=== PATIENT | female | born 1990 | race Caucasian/White ===

== ENCOUNTER 2019-08-19 09:46 | Emergency (ER) | payer SELFPAY ==
--- NOTE | 2019-08-19 10:35 | EDM.PDOC ---
ED HPI GENERAL MEDICAL PROBLEM - General Chief Complaint: Respiratory Problem Stated Complaint: BAD COUGH Time Seen by Provider: 08/19/19 10:23 Source of Information: Reports: Patient, RN Notes Reviewed History Limitations: Reports: No Limitations - History of Present Illness INITIAL COMMENTS - FREE TEXT/NARRATIVE: 29-year-old female presents emergency department today with complaint of cough, she states she has coughed up blood yesterday she states she was coughing nani blood today it's more blood tinged sputum. 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: Neurological History: Reports: Migraines Psychiatric History: Reports: Anxiety, Dementia, Suicidal Ideation - Past Surgical History Female Surgical History: Reports: Tubal Ligation Social & Family History - Tobacco Use Smoking Status *Q: Former Smoker Used Tobacco, but Quit: Yes Month/Year Tobacco Last Used: 10 years - Caffeine Use Caffeine Use: Reports: Coffee - Recreational Drug Use Recreational Drug Use: No ED ROS GENERAL - Review of Systems Review Of Systems: See Below Constitutional: Reports: No Symptoms HEENT: Reports: No Symptoms Respiratory: Reports: Cough, Hemoptysis Cardiovascular: Reports: No Symptoms GI/Abdominal: Reports: No Symptoms : Reports: No Symptoms ED EXAM, GENERAL - Physical Exam Exam: See Below Exam Limited By: No Limitations General Appearance: Alert, WD/WN, No Apparent Distress Eye Exam: Bilateral Eye: Normal Inspection Ears: Normal External Exam, Normal Canal, Hearing Grossly Normal, Normal TMs Nose: Normal Inspection, Normal Mucosa, No Blood Throat/Mouth: Normal Inspection, Normal Lips, Normal Teeth, Normal Gums, Normal Oropharynx, Normal Voice, No Airway Compromise Head: Atraumatic, Normocephalic Neck: Normal Inspection, Supple, Non-Tender, Full Range of Motion Respiratory/Chest: No Respiratory Distress, Lungs Clear, Normal Breath Sounds, No Accessory Muscle Use, Chest Non-Tender Cardiovascular: Regular Rate, Rhythm, No Murmur Course - Vital Signs Last Recorded V/S: Last Vital Signs Temp 97.5 F 08/19/19 10:05 Pulse 63 08/19/19 10:05 Resp 16 08/19/19 10:05 BP 111/42 L 08/19/19 10:05 Pulse Ox 99 08/19/19 10:05 - Orders/Labs/Meds Orders: Active Orders 24 hr Category Date Time Status Peripheral IV Care [RC] . DIRECTED Care 08/19/19 11:50 Active CULTURE RESPIRATORY + SMEAR [RM] Urgent Lab 08/19/19 10:31 Ordered Iopamidol [Isovue-300 (61%)] Med 08/19/19 12:15 Active 100 ml IV . DIRECTED PRN Sodium Chloride 0.9% [Normal Saline] 1,000 ml Med 08/19/19 12:00 Active IV ASDIRECTED Sodium Chloride 0.9% [Normal Saline] 70 ml Med 08/19/19 12:15 Active IV ASDIRECTED Sodium Chloride 0.9% [Saline Flush] Med 08/19/19 11:50 Active 10 ml FLUSH ASDIRECTED PRN Peripheral IV Insertion Adult [OM.PC] Urgent Oth 08/19/19 11:50 Ordered Medication Orders Sodium Chloride (Normal Saline) 1,000 mls @ 500 mls/hr IV ASDIRECTED [facility] Last Admin: 08/19/19 12:46 Dose: 500 mls/hr Sodium Chloride (Normal Saline) 70 mls @ 3 mls/sec IV ASDIRECTED [facility] Last Admin: 08/19/19 12:21 Dose: 3 mls/sec Iopamidol (Isovue-300 (61%)) 100 ml IV . DIRECTED PRN PRN Reason: RADIOLOGY EXAM Stop: 08/20/19 12:16 Last Admin: 08/19/19 12:21 Dose: 100 ml Sodium Chloride (Saline Flush) 10 ml FLUSH ASDIRECTED PRN PRN Reason: Keep Vein Open Last Admin: 08/19/19 12:10 Dose: 10 ml Labs: Laboratory Tests 08/19/19 08/19/19 08/19/19 Range/Units 10:41 10:41 10:41 WBC 5.5 (4.5-11.0) K/uL RBC 4.56 (3.30-5.50) M/uL Hgb 12.4 (12.0-15.0) g/dL Hct 39.6 (36.0-48.0) % MCV 87 (80-98) fL MCH 27 (27-31) pg MCHC 31 L (32-36) % Plt Count 319 (150-400) K/uL Neut % (Auto) 55 (36-66) % Lymph % (Auto) 31 (24-44) % Bailey % (Auto) 12 H (2-6) % Eos % (Auto) 2 (2-4) % Baso % (Auto) 1 (0-1) % PT 10.9 (9.5-12.0) sec INR 1.01 (0.80-1.20) D-Dimer, Quantitative 107 (0.0-400.0) ng/mL Sodium (140-148) mmol/L Potassium (3.6-5.2) mmol/L Chloride (100-108) mmol/L Carbon Dioxide (21-32) mmol/L Anion Gap (5.0-14.0) mmol/L BUN (7-18) mg/dL Creatinine (0.6-1.0) mg/dL Est Cr Clr Drug Dosing mL/min Estimated GFR (MDRD) (>60) Glucose (74-106) mg/dL Calcium (8.5-10.1) mg/dL Total Bilirubin (0.2-1.0) mg/dL AST (15-37) U/L ALT (12-78) U/L Alkaline Phosphatase (46-116) U/L Total Protein (6.4-8.2) g/dL Albumin (3.4-5.0) g/dL Globulin (2.3-3.5) g/dL Albumin/Globulin Ratio (1.2-2.2) 08/19/19 Range/Units 10:41 WBC (4.5-11.0) K/uL RBC (3.30-5.50) M/uL Hgb (12.0-15.0) g/dL Hct (36.0-48.0) % MCV (80-98) fL MCH (27-31) pg MCHC (32-36) % Plt Count (150-400) K/uL Neut % (Auto) (36-66) % Lymph % (Auto) (24-44) % Bailey % (Auto) (2-6) % Eos % (Auto) (2-4) % Baso % (Auto) (0-1) % PT (9.5-12.0) sec INR (0.80-1.20) D-Dimer, Quantitative (0.0-400.0) ng/mL Sodium 141 (140-148) mmol/L Potassium 4.1 (3.6-5.2) mmol/L Chloride 105 (100-108) mmol/L Carbon Dioxide 25 (21-32) mmol/L Anion Gap 10.9 (5.0-14.0) mmol/L BUN 12 (7-18) mg/dL Creatinine 0.9 (0.6-1.0) mg/dL Est Cr Clr Drug Dosing 76.30 mL/min Estimated GFR (MDRD) > 60 (>60) Glucose 90 (74-106) mg/dL Calcium 9.0 (8.5-10.1) mg/dL Total Bilirubin 0.3 (0.2-1.0) mg/dL AST 13 L (15-37) U/L ALT 15 (12-78) U/L Alkaline Phosphatase 39 L (46-116) U/L Total Protein 7.5 (6.4-8.2) g/dL Albumin 3.7 (3.4-5.0) g/dL Globulin 3.8 H (2.3-3.5) g/dL Albumin/Globulin Ratio 1.0 L (1.2-2.2) Meds: Medications Generic Name Dose Route Start Last Admin Trade Name Freq PRN Reason Stop Dose Admin Sodium Chloride 1,000 mls @ 500 mls/hr 08/19/19 12:00 08/19/19 12:46 Normal Saline IV 500 mls/hr ASDIRECTED [facility]ARRO Administration Sodium Chloride 70 mls @ 3 mls/sec 08/19/19 12:15 08/19/19 12:21 Normal Saline IV 3 mls/sec ASDIRECTED [facility]O Administration Iopamidol 100 ml 08/19/19 12:15 08/19/19 12:21 Isovue-300 (61%) IV 08/20/19 12:16 100 ml . DIRECTED PRN Administration RADIOLOGY EXAM Sodium Chloride 10 ml 08/19/19 11:50 08/19/19 12:10 Saline Flush FLUSH 10 ml ASDIRECTED PRN Administration Keep Vein Open Departure - Departure Time of Disposition: 13:13 Disposition: Home, Self-Care 01 Condition: Fair Clinical Impression: Hemoptysis - Discharge Information Referrals: PCP,None [Primary Care Provider] - Forms: ED Department Discharge Additional Instructions: Please report to the outpatient surgical care unit Thursday for bronchoscopy with Dr. Lew - My Orders Last 24 Hours: My Active Orders 08/19/19 10:31 CULTURE RESPIRATORY + SMEAR [RM] Urgent 08/19/19 11:50 Peripheral IV Care [RC] . DIRECTED Sodium Chloride 0.9% [Saline Flush] 10 ml FLUSH ASDIRECTED PRN Peripheral IV Insertion Adult [OM.PC] Urgent 08/19/19 12:00 Sodium Chloride 0.9% [Normal Saline] 1,000 ml IV ASDIRECTED 08/19/19 12:15 Iopamidol [Isovue-300 (61%)] 100 ml IV . DIRECTED PRN Sodium Chloride 0.9% [Normal Saline] 70 ml IV ASDIRECTED - Assessment/Plan Last 24 Hours: My Active Orders 08/19/19 10:31 CULTURE RESPIRATORY + SMEAR [RM] Urgent 08/19/19 11:50 Peripheral IV Care [RC] . DIRECTED Sodium Chloride 0.9% [Saline Flush] 10 ml FLUSH ASDIRECTED PRN Peripheral IV Insertion Adult [OM.PC] Urgent 08/19/19 12:00 Sodium Chloride 0.9% [Normal Saline] 1,000 ml IV ASDIRECTED 08/19/19 12:15 Iopamidol [Isovue-300 (61%)] 100 ml IV . DIRECTED PRN Sodium Chloride 0.9% [Normal Saline] 70 ml IV ASDIRECTED Plan: Assessment Acuity = acute Site and laterality = hemoptysis Etiology = unknown etiology Manifestations = none Location of injury = Home Lab values = CBC, CMP, d-dimer all within normal limits, chest x-ray unremarkable CT scan with contrast shows no acute process Plan Called discussed case with Dr. Lew general surgery at 1300 he agreed to evaluate the patient with bronchoscopy this be planned for Thursday This note was dictated using [employer] voice recognition software please call with any questions on syntax or grammar.
--- NOTE | 2019-08-19 11:11 | CRLCR ---
INDICATION: Hemoptysis. TECHNIQUE: PA and lateral. COMPARISON: None. FINDINGS: Lungs and pleural spaces clear. Heart size and pulmonary vasculature within normal limits. No significant osseous abnormality. IMPRESSION: Negative chest. Dictated by Davey Hills MD @ Aug 19 2019 11:07AM Signed by Dr. Davey Hills @ Aug 19 2019 11:08AM
[2019-08-19] MEDS ORDERED: Sodium Chloride 0.9% 10 ML Syringe FLUSH PRN (11:50)
[2019-08-19] MEDS ORDERED: Sodium Chloride 0.9% 1,000 ML IV SCH (12:00)
[2019-08-19] MEDS ORDERED: Iopamidol 612 MG/ML 100 ML Bottle IV PRN (12:15)
--- NOTE | 2019-08-19 12:53 | CRLCT ---
HISTORY: Hemoptysis. TECHNIQUE: Intravenous contrast enhanced CT of the chest. 100 mL of Isovue-300 intravenous contrast administered. COMPARISON: Chest radiographs 08/19/2019. FINDINGS: There is no acute pulmonary embolism. No thoracic aortic aneurysm or dissection. No significant pericardial effusion. No enlarged mediastinal or hilar lymph nodes. No axillary adenopathy. - There is no lung infiltrate or pulmonary edema. No pleural effusion or pneumothorax. No endotracheal or proximal endobronchial mass. - No acute fractures. - 2.3 cm lesion within the lateral segment left hepatic lobe demonstrates some peripheral discontinuous nodular enhancement and therefore likely reflects a hemangioma. IMPRESSION: 1. No lung infiltrate or pulmonary edema. 2. No pulmonary embolism. 3. 2.3 cm left hepatic lobe lesion is likely a hemangioma. Dictated by Tony Johnson MD @ 08/19/2019 12:51:05 PM Please note that all CT scans at this facility use dose modulation, iterative reconstruction, and/or weight-based dosing when appropriate to reduce radiation dose to as low as reasonably achievable. Dictated by: Tony Johnson MD @ 08/19/2019 12:51:12 (Electronically Signed)
== END 2019-08-19 13:53 | disposition home or self-care (01) ==
LOC: JP.ED 09:46
DX: R04.2 Hemoptysis (principal); F41.9 Anxiety disorder, unspecified; Z87.891 Personal history of nicotine dependence; Z79.899 Other long term (current) drug therapy
CPT/HCPCS: 36415; 71046; 71260; 80053; 85025; 85379; 85610; 96360; 99284; J7030; Q9967; 99283

== ENCOUNTER 2019-08-22 08:15 | Day surgery (SDC) | payer SELFPAY ==
[~2019-08-22 08:15] MED LIST: Lidocaine 2% Viscous Solution 15 ML Cup ONE; Lidocaine 4% Top Soln 50 ML Bottle ONE
[2019-08-22] MEDS ORDERED: Glycopyrrolate 0.2 MG/ML 2 ML SDV IVPUSH ONE (09:07)
[2019-08-22] MEDS ORDERED: Dextrose 5%-Lactated Ringers 1,000 ML IV SCH (09:15)
[2019-08-22] MEDS ORDERED: Midazolam 1 MG/ML 2 ML SDV ONE (12:13)
[2019-08-22] MEDS ORDERED: Propofol 200 MG/20 ML SDV ONE (12:13)
[2019-08-22] MEDS ORDERED: fentaNYL 100 MCG/2 ML SDV ONE (12:13)
[2019-08-22] MEDS ORDERED: Lidocaine 4% Top Soln LTA 4 ML Syringe Kit ONE (12:15)
--- NOTE | 2019-08-23 07:57 | OR ---
DATE OF PROCEDURE: 08/22/2019 SURGEON: Binh Lew MD PREOPERATIVE DIAGNOSIS: History of hemoptysis. POSTOPERATIVE DIAGNOSIS: History of hemoptysis with mild bronchitis involving the right upper lobe. OPERATIVE PROCEDURE: Flexible bronchoscopy with: 1. Tracheobronchial washings. 2. Bronchoalveolar lavage, right upper lobe. ANESTHESIA: Topical plus IV sedation. INDICATION FOR PROCEDURE: The patient was seen in the emergency room this past Thursday with some hemoptysis after having some heavy coughing. However, over the weekend, she has coughed up some more brown-type material consistent with some old blood, but no fresh blood, and the cough itself has largely dissipated. The patient did have a CT scan, which showed no obvious pulmonary or tracheal pathology. She did have what appeared to be hemangioma of the liver, but that was felt to be a hemangioma that would not necessarily need any additional followup or treatment. Plan is to proceed with flexible bronchoscopy with biopsies and/or lavage as indicated. Potential risks including bleeding and infection were reviewed, and the patient wishes to proceed. DETAILS OF PROCEDURE: The patient was taken to the operating room and placed in a semi- sitting position. IV sedation was administered, after which the transpharyngeal injection of lidocaine was placed for anesthesia. Flexible bronchoscope was then passed through the left side of the nose. The patient did have a little bit of nasal bleeding at that passage, but this stopped spontaneously. The hypopharynx and larynx were unremarkable. Cord motion was symmetrical. As one passed into the trachea, there was no visible pathology. Tracheal and carinal course were unremarkable. The tracheobronchial tree was diffusely evaluated. There were no abnormal secretions present, nothing more than just simple typical watery scant secretions. There was some very slight redness in the takeoff of the right upper lobe bronchus, but the remainder of the tracheobronchial tree was unremarkable. To this level, tracheobronchial washings were obtained. Following this, the bronchoscope was wedged into the right upper lobe bronchus and 200 mL of saline injected. This affluent was then removed in 2 containers, both of which along with tracheobronchial washings were sent for full microbiologic and cytologic workup. The procedure was then concluded. The microbiologic workup would include routine bacterial cultures, fungal stains and cultures, and acid-fast stains and cultures, and the fluid also being sent for cytologic examination. The patient was taken to the recovery room in satisfactory condition. The patient will be following up with her personal provider, which is Tonya Black PA-C, in [facility], and followup here will be on a p.r.n. basis. Binh Lew MD /[id number]
== END 2019-08-22 15:14 | disposition home or self-care (01) ==
LOC: JP.SDS 08:15
PROVIDERS: ATTEND Surgery
DX: R04.2 Hemoptysis (principal); J40 Bronchitis, not specified as acute or chronic
CPT/HCPCS: 31624; 87015; 87070; 87102; 87116; 87184; 87205; 87206; 87220; 88112; A9270; J2250; J2704; J3010; J3490; J7042

== ENCOUNTER 2019-08-25 13:22 | Emergency (ER) | payer SELFPAY ==
--- NOTE | 2019-08-25 14:45 | EDM.PDOC ---
ED HPI GENERAL MEDICAL PROBLEM - General Chief Complaint: Respiratory Problem Stated Complaint: COUGH,DIZZY,PAIN Time Seen by Provider: 08/25/19 13:40 Source of Information: Reports: Patient History Limitations: Reports: No Limitations - History of Present Illness INITIAL COMMENTS - FREE TEXT/NARRATIVE: pt arrived with a history of coughing up alot of blood. She had a bronchoscopy done on Thursday. Since that time she has had pain in her chest and back. She does continue to cough up blood. She states the sputum that she raises is very bloody. Onset: Today Duration: Hour(s): Location: Reports: Chest, Back Associated Symptoms: Reports: Chest Pain, Other (pain in her back. She continues to cough up blood. ) Chest Pain Score (Numeric/FACES): 10 - Related Data Allergies Allergy/AdvReac Type Severity Reaction Status Date / Time No Known Allergies Allergy Verified 08/25/19 14:54 Home Meds: Home Meds Sertraline HCl 75 mg PO DAILY 08/19/19 [History] Past Medical History HEENT History: Reports: Impaired Vision Respiratory History: Reports: Asthma Gastrointestinal History: Reports: GERD Genitourinary History: Reports: UTI, Recurrent [employer] History: Reports: , Spontaneous Musculoskeletal History: Reports: Back Pain, Chronic, Fracture Neurological History: Reports: Concussion, Migraines Psychiatric History: Reports: Anxiety, Dementia, PTSD, Suicidal Ideation Hematologic History: Reports: Anemia - Infectious Disease History Infectious Disease History: Reports: Chicken Pox, Influenza - Past Surgical History HEENT Surgical History: Reports: Oral Surgery Respiratory Surgical History: Reports: None GI Surgical History: Reports: None Female Surgical History: Reports: Tubal Ligation Neurological Surgical History: Reports: None Social & Family History - Family History Family Medical History: Noncontributory - Tobacco Use Smoking Status *Q: Former Smoker Used Tobacco, but Quit: Yes Month/Year Tobacco Last Used: 10 years - Caffeine Use Caffeine Use: Reports: Coffee - Recreational Drug Use Recreational Drug Use: No ED ROS GENERAL - Review of Systems Review Of Systems: See Below Constitutional: Reports: Weakness HEENT: Reports: No Symptoms Respiratory: Reports: Cough, Hemoptysis Cardiovascular: Reports: No Symptoms Endocrine: Reports: No Symptoms GI/Abdominal: Reports: No Symptoms : Reports: No Symptoms Musculoskeletal: Reports: No Symptoms Skin: Reports: No Symptoms ED EXAM, GENERAL - Physical Exam Exam: See Below Free Text/Narrative:: pt continues to cough up blood. She is feeling weak and shakey. Her culture from the bronch did grow out strept pneumonae which was sensitive to levoquin. She presently is not on antibiotics. Exam Limited By: No Limitations General Appearance: Alert, Anxious, Mild Distress Ears: Normal TMs Nose: Normal Inspection Throat/Mouth: Normal Inspection Head: Atraumatic Neck: Normal Inspection Respiratory/Chest: No Respiratory Distress, Other (pt did have a bronch which grew out strept pneumonae. ) Cardiovascular: Regular Rate, Rhythm GI/Abdominal: Soft, Non-Tender (Female) Exam: Deferred Rectal (Female) Exam: Deferred Back Exam: Normal Inspection Extremities: Normal Inspection Neurological: Alert, Oriented, Normal Cognition Course - Vital Signs Last Recorded V/S: Last Vital Signs Temp 36.6 C 08/25/19 13:40 Pulse 65 08/25/19 15:20 Resp 16 08/25/19 15:20 BP 97/63 08/25/19 15:20 Pulse Ox 100 08/25/19 15:20 - Orders/Labs/Meds Labs: Laboratory Tests 08/25/19 08/25/19 08/25/19 Range/Units 14:34 14:34 14:34 WBC 6.2 (4.5-11.0) K/uL RBC 4.35 (3.30-5.50) M/uL Hgb 11.8 L (12.0-15.0) g/dL Hct 38.0 (36.0-48.0) % MCV 87 (80-98) fL MCH 27 (27-31) pg MCHC 31 L (32-36) % Plt Count 279 (150-400) K/uL Neut % (Auto) 60 (36-66) % Lymph % (Auto) 24 (24-44) % [place] % (Auto) 13 H (2-6) % Eos % (Auto) 2 (2-4) % Baso % (Auto) 1 (0-1) % APTT 28.7 (27.0-36.0) sec Sodium 139 L (140-148) mmol/L Potassium 4.1 (3.6-5.2) mmol/L Chloride 105 (100-108) mmol/L Carbon Dioxide 26 (21-32) mmol/L Anion Gap 12.1 (5.0-14.0) mmol/L BUN 16 (7-18) mg/dL Creatinine 0.7 (0.6-1.0) mg/dL Est Cr Clr Drug Dosing 99.97 mL/min Estimated GFR (MDRD) > 60 (>60) Glucose 82 (74-106) mg/dL Calcium 8.8 (8.5-10.1) mg/dL Total Bilirubin 0.2 (0.2-1.0) mg/dL AST 11 L (15-37) U/L ALT 14 (12-78) U/L Alkaline Phosphatase 37 L (46-116) U/L Total Protein 7.3 (6.4-8.2) g/dL Albumin 3.4 (3.4-5.0) g/dL Globulin 3.9 H (2.3-3.5) g/dL Albumin/Globulin Ratio 0.9 L (1.2-2.2) - Re-Assessments/Exams Free Text/Narrative Re-Assessment/Exam: 08/29/19 07:24 pt did grow out strept pneumonae and was placed on levoquin today. A appt will be set up with pulmonology in [facility]. She will be given a call regardng the time. If the bleeding gets worse she will call. I did advise her that the antibiotics may make the bleeding better if the infection is controlled. Departure - Departure Time of Disposition: 15:33 Disposition: Home, Self-Care 01 Condition: Fair Clinical Impression: Hemoptysis, Streptococcus pneumoniae - Discharge Information Instructions: Hemoptysis, [id number] Referrals: PCP,None [Primary Care Provider] - Forms: ED Department Discharge Care Plan Goals: referal to pulmonoly in [place], levoquin 500mg daily for 10 days.
--- NOTE | 2019-08-25 15:03 | CRLCR ---
INDICATION: coughing up blood TECHNIQUE: Chest 1 view. COMPARISON: 08/19/19 FINDINGS: Cardiovascular and mediastinum: Heart size and vasculature are normal in caliber and appearance. Mediastinum is within normal limits. Lungs and pleural space: Lungs are clear. No sign of infiltrate or mass. No sign of pleural effusion. No pneumothorax. Bones and soft tissues: No significant findings. IMPRESSION: Unremarkable chest. Dictated by: Raman Howard MD @ 08/25/2019 15:01:19 (Electronically Signed)
== END 2019-08-25 15:58 | disposition home or self-care (01) ==
LOC: JP.ED 13:22
DX: J13 Pneumonia due to Streptococcus pneumoniae (principal); R04.2 Hemoptysis; F41.9 Anxiety disorder, unspecified; F03.90 Unspecified dementia, unspecified severity, without behavioral disturbance, psychotic disturbance, mood disturbance, and anxiety; Z79.899 Other long term (current) drug therapy; Z87.891 Personal history of nicotine dependence
CPT/HCPCS: 36415; 71045; 80053; 85025; 85730; 99283; 99284